=== PATIENT | female | born 1950 | race Caucasian/White ===

== ENCOUNTER 2017-03-21 15:27 | Emergency (ER) | payer MEDICARE, SELFPAY ==
[2017-03-21] VITALS (9 sets, daily range): BP systolic 117–180; BP diastolic 78–137; PULSE 68–106; RESP 15–24; TEMP 36.8–36.9; O2SAT 94–98; BMI 51.5
--- NOTE | 2017-03-21 15:55 | EKG12_ITS ---
Test Reason : Blood Pressure : / mmHG Vent. Rate : 097 BPM Atrial Rate : 097 BPM P-R Int : 142 ms QRS Dur : 090 ms QT Int : 356 ms P-R-T Axes : 059 045 047 degrees QTc Int : 452 ms Normal sinus rhythm Normal ECG Confirmed by DINORAH MORRISON, BANDAR ([id number]), offline editor NATALEE BROWN ([id number] on 03/24/2017 1:49:52 PM Referred By: DL Confirmed By:BANDAR COPELAND MD
--- NOTE | 2017-03-21 15:58 | ED.VISSUMM ---
- ER Visit Summary Date of Service: 03/21/17 Chief Complaint: Hallucinations History of Present Illness: The patient is a 66 F with recent admission for pneumonia who presents with hallucinations for 3-4 weeks. Patient lives at a alf facility and states that since she got home she has been seeing things on her wall move, with her wall hangings slowly turning upside down in the television ending up on the floor. This does not really happen. Her doctor was concerned and wanted her to be seen for further evaluation. She endorses a chronic cough worse since her admission. Patient has history of diabetes, hypertension, COPD, fibromyalgia, and is on home oxygen. Physical Examination: Vital signs: afebrile, hemodynamically stable, no hypoxia on room air General: well nourished, well developed, obese, in no distress Skin: warm, pale, moist, no rash HEENT: normocephalic and atraumatic; PERRL, EOMI, moist mucous membranes Cardiovascular: Tachycardic rate and rhythm without murmurs, no peripheral edema, 2+ pulses all distal extremities Respiratory: No increased work of breathing, lungs are rhonchorous with a very moist cough chest is tender Abdominal: Abdomen is soft, nontender with normoactive bowel sounds, no guarding or rebound, no masses MSK: Moves all extremities, no deformities, normal strength Neuro: Awake and alert, oriented ?4. No facial droop, sensation and motor function intact and symmetric Test Results: Abnormal Lab Results 03/21/17 03/21/17 03/21/17 16:15 16:15 16:15 WBC 9.0 RBC 4.82 Hgb 13.0 Hct 42.3 MCV 87.8 MCH 27.0 MCHC 30.7 L RDW 15.1 H RDW Differential 48.3 H Plt Count 280 MPV 10.4 Immature Gran % (Auto) 0.400 Neut % (Auto) 73.4 H Lymph % (Auto) 17.7 L Marin % (Auto) 6.5 Eos % (Auto) 1.8 Baso % (Auto) 0.2 Absolute Neuts (auto) 6.6 Absolute Lymphs (auto) 1.60 Total Counted Not Reportable Specimen Type Sample Site pH Bicarbonate Actual POC Total CO2 Base Excess O2 Saturation ABG pCO2 ABG pO2 Medardo Test O2 Delivery Device Liter Flow Blood Gas Notified Whom Blood Gas Notified Time Sodium 138 Potassium 4.4 Chloride 101 Carbon Dioxide 30.0 Anion Gap 7 BUN 9 Creatinine 0.92 Estim Creat Clear Calc 43.21 Est GFR (MDRD) Af Amer 78 Est GFR (MDRD) Non-Af 65 BUN/Creatinine Ratio 9.8 L Glucose 191 H Lactic Acid 2.0 Calcium 9.0 Troponin I < 0.02 B-Natriuretic Peptide Urine Color Urine Clarity Urine pH Ur Specific [place] Urine Protein Urine Glucose (UA) Urine Ketones Urine Occult Blood Urine Nitrite Urine Bilirubin Urine Urobilinogen Ur Leukocyte Esterase Urine RBC Urine WBC Ur Squamous Epith Cells Ur Renal Epithelial Cell Urine Bacteria Hyaline Casts Urine Mucus 03/21/17 03/21/17 03/21/17 16:15 20:40 20:55 WBC RBC Hgb Hct MCV MCH MCHC RDW RDW Differential Plt Count MPV Immature Gran % (Auto) Neut % (Auto) Lymph % (Auto) Marin % (Auto) Eos % (Auto) Baso % (Auto) Absolute Neuts (auto) Absolute Lymphs (auto) Total Counted Specimen Type Sample Site pH Bicarbonate Actual POC Total CO2 Base Excess O2 Saturation ABG pCO2 ABG pO2 Medardo Test O2 Delivery Device Liter Flow Blood Gas Notified Whom Blood Gas Notified Time Sodium Potassium Chloride Carbon Dioxide Anion Gap BUN Creatinine Estim Creat Clear Calc Est GFR (MDRD) Af Amer Est GFR (MDRD) Non-Af BUN/Creatinine Ratio Glucose Lactic Acid 1.2 Calcium Troponin I B-Natriuretic Peptide 71.5 Urine Color Yellow Urine Clarity Sl. Cloudy Urine pH 6.0 Ur Specific [place] 1.010 Urine Protein 30 H Urine Glucose (UA) Normal Urine Ketones Negative Urine Occult Blood Negative Urine Nitrite Negative Urine Bilirubin Negative Urine Urobilinogen Normal Ur Leukocyte Esterase 100 H Urine RBC 0 SEEN Urine WBC 0-5 SEEN Ur Squamous Epith Cells 0-5 SEEN Ur Renal Epithelial Cell 0-5 SEEN Urine Bacteria 0 SEEN Hyaline Casts 0-5 SEEN Urine Mucus 0 SEEN 03/21/17 21:12 WBC RBC Hgb Hct MCV MCH MCHC RDW RDW Differential Plt Count MPV Immature Gran % (Auto) Neut % (Auto) Lymph % (Auto) Marin % (Auto) Eos % (Auto) Baso % (Auto) Absolute Neuts (auto) Absolute Lymphs (auto) Total Counted Specimen Type ART Sample Site L Radial pH 7.43 Bicarbonate Actual 33.1 H POC Total CO2 35 Base Excess 9 H O2 Saturation 97 ABG pCO2 50.1 H ABG pO2 87 Medardo Test POS O2 Delivery Device Nasal Can Liter Flow 2.0 Blood Gas Notified Whom ED MD Blood Gas Notified Time 2104 Sodium Potassium Chloride Carbon Dioxide Anion Gap BUN Creatinine Estim Creat Clear Calc Est GFR (MDRD) Af Amer Est GFR (MDRD) Non-Af BUN/Creatinine Ratio Glucose Lactic Acid Calcium Troponin I B-Natriuretic Peptide Urine Color Urine Clarity Urine pH Ur Specific [place] Urine Protein Urine Glucose (UA) Urine Ketones Urine Occult Blood Urine Nitrite Urine Bilirubin Urine Urobilinogen Ur Leukocyte Esterase Urine RBC Urine WBC Ur Squamous Epith Cells Ur Renal Epithelial Cell Urine Bacteria Hyaline Casts Urine Mucus Emergency Department Course and Treatment: Workup was performed for delirium, as patient is having visual hallucinations. EKG showed a sinus rhythm at a rate of 97 without ischemic changes. CBC showed no leukocytosis. No electrolyte derangements. No hepatic or renal dysfunction. Initial lactate was 2. [id number] blood sugar was elevated at 191. Troponin negative. Flu negative. Urinalysis was negative for infection. Chest x-ray showed pneumonia. There was elevation of the right hemidiaphragm, effusion versus chronic elevation. Head CT showed no acute process. She received IV fluids. Repeat lactate was 1.2 and improved. Patient continues to have visual hallucinations while in the emergency department and is emotionally labile. She was discussed with Dr. Soto, who is currently making some medication changes and weaning patient off some of her medications that may contribute to delirium. No organic cause was found for patient's visual hallucinations and no findings that would warrant admission. This was discussed with Dr. Soto was agreeable with patient being discharged back to the alf facility for continued medication adjustments. Patient was discharged back to her SNF. Treatment Plan: [] Disposition: Discharge Impression: 1. Delirium 2. Visual hallucinations 3. History of dementia This note was generated with [employer] software. It may contain incorrect words, spelling, and punctuation that were not noted in review of the chart prior to signing ED Disposition - Plan for ED Patient: Chief Complaint: Alt LOC Referrals: Arnaud Soto [Primary Care Provider] -
[2017-03-21] MEDS: Albuterol 2.5 MG/3 ML VIAL.NEB. INHALATION ×3 (16:31)
[2017-03-21] MEDS: Ipratropium/Albuterol Sulfate 3 ML AMPUL.NEB INHALATION (16:31)
[2017-03-21 16:35] LABS: Absolute Neutrophil Count 6.6 X10^3/uL (2.0-7.7); Basophil# 0.02 X10^3/uL; Basophil% 0.2 % (0-1); Eosinophil# 0.16 X10^3/uL; Eosinophils% 1.8 % (0-5); Hematocrit 42.3 % (37-47); Lymphocyte % 17.7 % (19-41); Mean Corp Hgb Conc 30.7 g/gl (32-36); Mean Corpuscular Volume 87.8 fL (81-99); Mean Platelet Vol. 10.4 fl (6.2-12.0); Monocyte# 0.59 X10^3/uL; Monocyte% 6.5 % (0-10); Neutrophil # 6.62 X10^3/uL (2.7-7.7); Neutrophil % 73.4 % (47-70); Platelet Count 280 K/mm3 (150-450); RBC Distribution Width CV 15.1 % (11.6-14.6); RBC Distribution Width SD 48.3 fl (35.1-43.9); Red Blood Count 4.82 M/mm3 (4.2-5.4)
[2017-03-21 16:36] LABS: POSITIVE COUNT NO; POSITIVE DIFFERENTIAL NO; POSITIVE MORPHOLOGY NO
[2017-03-21] MEDS: 0.9% Normal Saline 1,000 ML 150 ML IV (16:38)
[2017-03-21 16:51] LABS: Anion Gap 7 (5-15); BUN 9 mg/dL (7-18); BUN/Creat Ratio 9.8 RATIO (10-20); Chloride 101 mmol/L (98-107); Creatinine, Serum 0.92 mg/dL (0.55-1.02); EST Glomerular Filtration Rate 65 mL/min (>60); Est Glom Filt Rate - Afr Amer 78 mL/min (>60); Estimated Creatinine Clearance 43.21 ml/min; Glucose 191 mg/dL (74-106); Potassium 4.4 mmol/L (3.5-5.1); Sodium Level 138 mmol/L (136-145)
--- NOTE | 2017-03-21 17:05 | RAD_ITS ---
STUDY: X-RAY CHEST REASON FOR EXAM: Female, 66 years old. Cough. Altered loss of consciousness. TECHNIQUE: Frontal and lateral views of the chest. COMPARISON: None. FINDINGS: The left lung is hyperexpanded. There is a large right pleural effusion with compression atelectasis of the right lower and middle lobes. There is cardiomegaly. Normal mediastinum and taco. Normal visualized pulmonary arteries. There is atherosclerotic calcification of the aortic arch with tortuosity. Normal visualized thoracic spine. Normal visualized ribs, clavicles, and shoulders. There is no demonstrated abnormality of the visualized soft tissue structures of the upper abdomen. RAD/Chest PA and Lateral IMPRESSION: Cardiomegaly with hyperexpansion of the left lung. Large right pleural effusion with compression atelectasis as described. Electronically Signed: Arnaud Genao MD at 17:32 EST , Service support ,
--- NOTE | 2017-03-21 17:14 | ED.RN ---
LACTIC ACID 2.[address] LAB. DR LIZAMA AWARE
[2017-03-21 17:23] LABS: BNP,B-Type NATRIURETIC PEPTIDE 71.5 pg/mL (0-100)
--- NOTE | 2017-03-21 17:51 | CT_ITS ---
STUDY: CT BRAIN WITHOUT CONTRAST REASON FOR EXAM: Female, 66 years old. Dementia. Hallucinations. RADIATION DOSAGE (If Supplied By Facility): CTDIvol = ( 44.99 ) mGy, DLP = ( 762.36 ) mGycm TECHNIQUE: Transaxial CT imaging of the brain was performed without administration of intravenous contrast material. Individualized dose optimization techniques were used for this CT. COMPARISON: None. FINDINGS: Normal soft tissue structures. There is hyperostosis frontalis internus. Normal size ventricles and extra-axial spaces for the patient's age. There are areas of decreased attenuation within the white matter tracts of the supratentorial brain, consistent with microvascular disease changes. Normal basal ganglia and thalami. Normal brainstem. Normal cerebellum. There is no intracranial hemorrhage. There are no findings of an acute ischemic infarction. There is mucoperiosteal inflammatory disease of the paranasal sinuses consistent with moderate chronic sinusitis. CT/Brain/Head without Contrast IMPRESSION: Chronic involutional changes of the brain. Electronically Signed: Edwin Wynne MD at 18:43 EST , Service support ,
[2017-03-21 20:22] LABS: Reflex Lactate? Y
[2017-03-21 21:01] LABS: Bacteria 0 SEEN /hpf (None Seen); Mucous, Urine 0 SEEN /hpf (<or=2+); Red Blood Cells-Urine 0 SEEN /hpf (0-5)
[2017-03-21 21:04] LABS: Color, Urine Yellow (Yellow); Glucose, Dipstick Normal (Normal); Ketone-Dipstick Negative (Negative); Leukocyte Esterase-Dipstick 100 /ul (Negative); Nitrite-Dipstick Negative (Negative); Occult Blood-Urine Negative /ul (Negative); Protein-Dipstick 30 mg/dl (Negative); Urine Bilirubin Dipstick Negative (Negative); Urine Clarity Sl. Cloudy (Clear); Urine Urobilinogen Normal (Normal)
[2017-03-21 21:10] LABS: Hyaline Cast 0-5 SEEN /lpf (0-5); Squamous Epithelial Cells - UA 0-5 SEEN /hpf (5-10)
[2017-03-21 21:12] LABS: Renal Epithelial Cells 0-5 SEEN /hpf (0-5); White Blood Cells 0-5 SEEN /hpf (0-5)
[2017-03-21 21:16] LABS: Allen Test POS; Base Excess 9 mmol/L (-2 to +2); Bicarbonate 33.1 mmol/L (22-26); Blood Gas Specimen Type ART; O2 Delivery Device Nasal Can; PO2 87 mmHG (75-100); SITE L Radial; SO2 97 % (95-99); Time Given 2105; Total Carbon Dioxide 35 mmol/L; pCO2 50.1 mmHg (35-45); pH 7.43 (7.35-7.45)
[2017-03-21 21:17] LABS: Lactic Acid 1.2 mmol/L (0.4-2.0)
--- NOTE | 2017-03-21 21:30 | ED.DEP ---
ED Disposition - Plan for ED Patient: Disposition: Home or Assisted Living Chief Complaint: Alt LOC Instructions: ED Dementia Alzheimer, Caring for a Person with Delirium Referrals: Arnaud Soto [Primary Care Provider] - As soon as possible Additional Instructions: There was no medical cause of patient's hallucinations identified on her workup today. If there are any further concerns, please return to the emergency department. We are concerned that she may have some medication interactions that are contributing to her hallucinations. Please follow-up with Dr. Soto as soon as possible to discuss further medication evaluation and adjustments.
--- NOTE | 2017-03-21 22:37 | ED.RN ---
REPORT CALLED FOR DISCHARGE BACK TO [facility]. REPORT GIVEN TO KIRAN. WENT OVER LABS, CT AND CXR.
== END 2017-03-21 22:38 | disposition skilled nursing facility (03) ==
PROVIDERS: Emergency Provider Emergency Medicine; Family Provider Family Medicine; PCP Family Medicine
DX: R41.0 Disorientation, unspecified (principal); R44.1 Visual hallucinations; F03.90 Unspecified dementia, unspecified severity, without behavioral disturbance, psychotic disturbance, mood disturbance, and anxiety; J44.9 Chronic obstructive pulmonary disease, unspecified; E11.9 Type 2 diabetes mellitus without complications; I10 Essential (primary) hypertension; M79.7 Fibromyalgia; E66.9 Obesity, unspecified; Z99.81 Dependence on supplemental oxygen; Z87.01 Personal history of pneumonia (recurrent); Z79.84 Long term (current) use of oral hypoglycemic drugs; Z79.82 Long term (current) use of aspirin; Z79.899 Other long term (current) drug therapy
CPT/HCPCS: 36415; 36600; 70450; 71046; 80048; 81001; 82803; 83605; 83880; 84484; 85025; 87040; 87086; 87804; 93005; 94640; 96360; 96361; 99285; J7030; P9612; A4216